=== PATIENT | male | born 1945 | race Caucasian/White ===

== ENCOUNTER 2018-04-08 14:15 | Emergency (ER) | payer MEDICARE, MEDICAID ==
[~2018-04-08] VITALS: Ht 157.5 cm; Wt 69.9 kg
[2018-04-08] MEDS ORDERED: methylPREDNISolone SOD SUCC 125 MG/2ML VIAL IV ONE (14:30)
[2018-04-08] MEDS ORDERED: diphenhydrAMINE HCL 50 MG/ML VIAL IV ONE (14:30)
[2018-04-08] MEDS ORDERED: IV NS 0.9% 500 ML BAG IV ONE (14:30)
[2018-04-08] MEDS ORDERED: diphenhydrAMINE HCL 50 MG/ML VIAL ONE (14:36)
[2018-04-08] MEDS ORDERED: methylPREDNISolone SOD SUCC 125 MG/2ML VIAL ONE (14:37)
[2018-04-08] MEDS ORDERED: MULT-24 PO (14:39)
[2018-04-08] MEDS ORDERED: IBUP-51 PO (14:39)
[2018-04-08] MEDS ORDERED: FOLI1TAB16 PO (14:39)
[2018-04-08] MEDS ORDERED: MAGN400O6 PO (14:39)
[2018-04-08] MEDS ORDERED: THIA50TA2 PO (14:39)
[2018-04-08] MEDS ORDERED: ACET-868 PO (14:39)
[2018-04-08] MEDS ORDERED: NA P133E RC (14:39)
[2018-04-08] MEDS ORDERED: BISA10SU8 RC (14:39)
--- NOTE | 2018-04-08 14:45 | NUR ---
LUIS FROM [facility] FOR SWELLING AND REDNESS ON BOTH EYES. SEEN BY MD FOR EVAL. NO NOTED TRAUMA. VSS. PT [phone]. SAFETY AND COMFORT MEASURES PROVIDED. WILL MONITOR.
[2018-04-08] MEDS: CIPROFLOXACIN HCL 0.3% 5 ML BOTTLE EACHEYE SCH ×2 (14:49→17:06)
[2018-04-08 14:55] LABS: BASOPHILS % (AUTO) 0.4 % (0.0-2.0); EOSINOPHILS % (AUTO) 14.7 % (0.0-6.0); HEMATOCRIT 34 % (39-51); HEMOGLOBIN 11.5 g/dL (13.5-17.5); LYMPHOCYTES # (AUTO) 4.1 /CMM (0.8-4.8); LYMPHOCYTES % (AUTO) 45.5 % (20.0-44.0); MEAN CORPUSCULAR HEMOGLOBIN 32 PG (26.0-33.0); MEAN CORPUSCULAR HGB CONC 34 g/dl (31.0-36.0); MEAN CORPUSCULAR VOLUME 95 fL (80-96); MONOCYTES # (AUTO) 0.8 /CMM (0.1-1.30); MONOCYTES % (AUTO) 8.9 % (2.0-12.0); NEUTROPHILS # (AUTO) 2.7 /CMM (1.8-8.9); NEUTROPHILS % (AUTO) 30.5 % (43.0-81.0); PLATELET COUNT (AUTO) 235 /CMM (150-450); RDW COEFFICIENT OF VARIATION 14.1 (11.5-15.0); RED BLOOD CELL COUNT(AUTO) 3.63 MIL/uL (4.5-6.0); WHITE BLOOD COUNT (AUTO) 8.9 K/uL (4.3-11.0)
[2018-04-08 15:06] LABS: CALCIUM, SERUM 8.6 mg/dL (8.5-10.1); CARBON DIOXIDE 27 mmol/L (21-32); CHLORIDE 102 mmol/L (98-107); GLUCOSE 111 mg/dL (74-106); POTASSIUM 3.8 mmol/L (3.5-5.1); SODIUM SERUM 135 mmol/L (136-145); UREA NITROGEN, BLOOD 18 mg/dL (7-18)
[2018-04-08 15:14] LABS: ALANINE AMINOTRANSFERASE 14 U/L (12-78); ALBUMIN 2.5 g/dL (3.4-5.0); ALKALINE PHOSPHATASE 58 U/L (46-116); ASPARTATE AMINOTRANSFERASE 18 U/L (15-37); BILIRUBIN,DIRECT 0.1 mg/dL (0.0-0.2); BILIRUBIN,TOTAL 0.3 mg/dL (0.2-1.0); TOTAL PROTEIN, SERUM 9.7 g/dL (6.4-8.2)
--- NOTE | 2018-04-08 15:49 | NUR ---
CALLED [facility] FOR THIS PATIENT TO BE TRANSFERRED BACK TO [facility]. ETA 1635 TO 1700 HOURS TRIP NUMBER: [id number]
[2018-04-08 17:06] VITALS: BP 114/70
--- NOTE | 2018-04-08 17:08 | NUR ---
REPORT GIVEN TO [facility] STAFF FOR TRANSFER.
== END 2018-04-08 17:08 | disposition home or self-care (01) ==
LOC: ER 14:22
DX: T78.40XA Allergy, unspecified, initial encounter (principal); B30.9 Viral conjunctivitis, unspecified; I10 Essential (primary) hypertension; F03.90 Unspecified dementia, unspecified severity, without behavioral disturbance, psychotic disturbance, mood disturbance, and anxiety
CPT/HCPCS: 36415; 71045; 80048; 80076; 85025; 87804 ×2; 96374; 96375; 99285; A4606; J1200; J2930; J7030; J7040; 87400; Z7610